=== PATIENT | female | born 1985 | race Caucasian/White ===

== ENCOUNTER 2021-07-17 13:12 | Emergency (ER) | payer BC, SELFPAY ==
--- NOTE | ~2021-07-17 | XR_ITS ---
EXAMINATION: XR CHEST CLINICAL INFORMATION: Flulike symptoms COMPARISON: None TECHNIQUE: Frontal view of the chest was obtained. FINDINGS: Normal appearance of the cardiomediastinal structures. No effusions or pneumothoraces. A normal pattern of pulmonary vasculature is noted. No focal pulmonary consolidation is identified. No skeletal abnormalities visualized. XR/XR chest 1V IMPRESSION: Normal chest. Lungs clear.
[2021-07-17 13:21] VITALS: BP 142/88; PULSE 118; O2SAT 95
[2021-07-17 14:44] VITALS: BP 130/76; PULSE 116; RESP 18; TEMP 36.4; O2SAT 95
[2021-07-17 17:06] VITALS: BP 141/85; PULSE 104; RESP 16; TEMP 36.4; O2SAT 95; BMI 33.6
--- NOTE | 2021-07-17 17:06 | ED_ITS ---
HPI - Abdominal Pain General Chief Complaint: Abdominal Pain Stated Complaint: FLU-LIKE SYMPTOMS,N/V Time Seen by Provider: 07/17/21 13:15 Source: patient Mode of arrival: EMS History of Present Illness HPI narrative: 36-year-old female who presents emergency department for evaluation of nausea, diarrhea and abdominal pain which began at midnight. Patient states that she has moderate to severe, constant, abdominal pain located around her umbilical area and her lower abdomen. She states that she has had too numerous to count episodes of diarrhea with no blood in the diarrhea. She states she has been feeling lightheaded and dizzy. She states that her legs were cramping and feeling weak. She denied rhinorrhea, sore throat, cough, chest pain. She states she was feeling some slight dyspnea on exertion. The patient has been vaccinated for COVID 19, she received her initial to [email or web address] and a booster shot May 2021. She has not traveled outside of the country recently. She has not been on antibiotics recently. Related Data Previous Rx's Medication Instructions Recorded ondansetron 4 mg disintegrating 4 mg PO Q6-8H PRN #14 tab 07/17/21 tablet Allergies Allergy/AdvReac Type Severity Reaction Status Date / Time No Known Allergies Allergy Verified 07/17/21 16:59 Review of Systems Review of Systems Yes all other systems are reviewed and are negative Physical Exam Vital Signs: Vital Signs: Last Vital Signs Temp 97.6 F 07/17/21 17:06 Pulse 104 H 07/17/21 17:06 Resp 16 07/17/21 17:06 BP 141/85 H 07/17/21 17:06 Pulse Ox 95 07/17/21 17:06 BMI result Body Mass Index 33.6 Const: General: cooperative and no acute distress Orientation /consciousness: oriented to person and oriented to place Limitations: no limitations HENMT: Head: Yes normal to inspection, Yes normocephalic and Yes atraumatic Ears: external ears normal General nose exam: Normal external nose present Face and sinus: Yes normal facial exam Mouth: Normal oral and palatal mucosa present Throat: Yes posterior oropharynx normal Eyes: General: appearance normal, both eyes and all related structures Pupils: Equal, round and reactive pupils present EOM: movement deficit (Left eye deviated laterally) Neck: Neck: Yes normal visual inspection, Yes no lymphadenopathy, Yes trachea midline and Yes supple Chest: Chest palpation & inspection: normal inspection of the chest and normal palpation of entire chest wall Resp: Effort & Inspection: normal respiratory effort and able to speak in complete sentences Auscultation: clear to auscultation bilaterally Cardio: Rate: regular rate Rhythm: regular rhythm Heart sounds: S1 normal heart sound present, S2 normal heart sound present and no murmurs GI: Inspection: Yes normal to inspection Palpation (GI): Soft to palpation, Tenderness to palpation present (GI) in the epigastrum (Mild), in the RLQ (Moderate), in the LUQ (Moderate), periumbilically (Moderate) and suprapubicly (Moderate) and no guarding Auscultation: normal bowel sounds : General: Yes no CVA tenderness Back/Spine/Pelvis: Back: no CVA tenderness Skin: General skin exam: no rashes or lesions noted Neuro: General: oriented to person and oriented to place Cranial nerves: Yes CN's II-XII intact bilaterally and Yes Equal, round and reactive pupils present Cognition (Neuro): normal cognition Motor exam (neuro): 5/5 motor strength present throughout Extrem: General: Yes normal to inspection Psych: Appearance: grossly normal Speech and movement: Normal speech and movement present Affect: normal affect Attitude: cooperative Thought process: Normal thought process present Thought content: Normal thought content present Course Course Course Narrative: 36-year-old female who presents emergency department for evaluation of abdominal pain, nausea and diarrhea. Her symptoms began at midnight. She has had too numerous to count episodes of diarrhea with no blood in the diarrhea. She complains of periumbilical and lower abdominal pain which waxes and wanes in intensity but is 8/10 at its worst. Vital signs revealed an elevated pulse of 116 otherwise were unremarkable. Abdominal exam revealed mild epigastric tenderness with moderate periumbilical right lower quadrant, supra pubic and left lower quadrant tenderness. Differential includes but is not limited to viral infection, COVID-19, appendicitis, diverticulitis, pancreatitis. Given her diarrhea aspect that this is more likely a viral illness. I did order a CBC, CMP, lipase, urinalysis, urine test. Patient will be treated with normal saline IV x1 L. Her pain will be treated with Toradol 15 mg IV and her nausea treated with Zofran 4 mg IV. I did order a SARs/influenza/RSV test as well. 1940: Laboratory evaluation: CBC was normal. Potassium was low 3.2, bicarb was low 16, glucose was elevated 150, AST is elevated at 32. Lactate was elevated 2.2. Chest x-ray was negative. COVID-19, influenza and RSV tests were negative. The patient states that her pain did improve, her nausea also improved, she was able to drink Gatorade without any difficulty. She had no diarrhea while she was here in the emergency department. Repeat abdominal exam revealed mild left lower and left upper quadrant tenderness. She states that her pain is 7/10. She was given morphine 4 mg IV. I suspect the patient has a viral syndrome causing her symptoms I did discuss this with her. I did tell her that her COVID-19 test was negative however between day 1 and for of COVID false negatives are possible and I told her that she is still sick after 5 days she should have a repeat COVID test. She was given a note not return to work for 5 days. She is given a prescription for Zofran 4 mg every 6-8 hours as needed for nausea and vomiting. MDM - Abdominal Pain Lab Data Result diagrams: 07/17/21 18:25 07/17/21 18:25 Labs: Lab Results 07/17/21 07/17/21 07/17/21 Range/Units 17:38 17:50 18:25 WBC 10.7 (4.8-10.8) X10*3/uL RBC 4.94 (4.20-5.50) X10*6/uL Hgb 14.0 (12.0-16.0) g/dl Hct 43.9 (37.0-47.0) % MCV 88.9 (80.0-98.0) fL MCH 28.3 (27.0-33.0) pg MCHC 31.9 (31.0-35.0) g/dl RDW 14.1 (11.0-16.0) % Plt Count 275 (160-400) X10*3/uL MPV 9.4 (9.4-12.3) fL Immature Gran % (Auto) 0.6 H (0.0-0.4) % Neut % (Auto) 90.0 H (45-73) % Lymph % (Auto) 3.4 L (20-40) % Sullivan % (Auto) 5.8 (2-11) % Eos % (Auto) 0.0 (0-4) % Baso % (Auto) 0.2 (0-2) % Lymph # (Auto) 0.4 L (1.2-4.9) X10*3/uL Sullivan # (Auto) 0.6 (0.1-1.2) X10*3/uL Eos # (Auto) 0.0 (0.0-0.4) X10*3/uL Baso # (Auto) 0.0 (0.0-0.2) X10*3/uL Abs Immat Gran (auto) 0.06 H (0.00-0.03) X10*3/uL Absolute Neuts (auto) 9.7 H (2.0-8.3) x10*3/uL Absolute Nucleated RBC 0.000 (0.0-0.012) X10*3/uL Nucleated RBC % (auto) 0.0 (0.0-0.2) /100WBC Sodium (135-145) mmol/L Potassium (3.3-5.1) mmol/L Chloride (96-108) mmol/L Carbon Dioxide (22-29) mmol/L Anion Gap (12-20) BUN (9-16) mg/dL Creatinine (0.5-1.4) mg/dL Estim Creat Clear Calc Estimated GFR Random Glucose (60-115) mg/dL Lactic Acid (0.5-2.0) mmol/L Calcium (8.4-10.2) mg/dL Total Bilirubin (0.0-1.0) mg/dL AST (5-31) U/L ALT (0-31) U/L Alkaline Phosphatase (39-117) U/L Total Protein (6.5-8.0) g/dL Albumin (3.5-5.0) g/dL Lipase (8-78) U/L Urine Color YELLOW Urine Appearance HAZY Urine pH 6.0 (5.0-8.0) Ur Specific [place] >= 1.030 H (1.005-1.025) Urine Protein 1+ H (NEG-TRACE) MG/DL Urine Glucose (UA) NEG (NEG) MG/DL Urine Ketones 15 (NEG) MG/DL Urine Blood 2+ H (NEG) Urine Nitrite NEG (NEG) Ur Leukocyte Esterase NEG (NEG) Urine RBC 5-9 H (0) /HPF Urine WBC 0-2 (0-4) /HPF Ur Squamous Epith Cells 2+ /LPF Urine Bacteria 1+ /LPF Urine Mucus 2+ /LPF Influenza Type A (PCR) NEGATIVE (Negative) Influenza Type B (PCR) NEGATIVE (Negative) RSV RNA Qual (PCR) NEGATIVE (Negative) SARS-CoV-2 RNA (RT-PCR) NEGATIVE (Negative) 07/17/21 07/17/21 Range/Units 18:25 18:25 WBC (4.8-10.8) X10*3/uL RBC (4.20-5.50) X10*6/uL Hgb (12.0-16.0) g/dl Hct (37.0-47.0) % MCV (80.0-98.0) fL MCH (27.0-33.0) pg MCHC (31.0-35.0) g/dl RDW (11.0-16.0) % Plt Count (160-400) X10*3/uL MPV (9.4-12.3) fL Immature Gran % (Auto) (0.0-0.4) % Neut % (Auto) (45-73) % Lymph % (Auto) (20-40) % Sullivan % (Auto) (2-11) % Eos % (Auto) (0-4) % Baso % (Auto) (0-2) % Lymph # (Auto) (1.2-4.9) X10*3/uL Sullivan # (Auto) (0.1-1.2) X10*3/uL Eos # (Auto) (0.0-0.4) X10*3/uL Baso # (Auto) (0.0-0.2) X10*3/uL Abs Immat Gran (auto) (0.00-0.03) X10*3/uL Absolute Neuts (auto) (2.0-8.3) x10*3/uL Absolute Nucleated RBC (0.0-0.012) X10*3/uL Nucleated RBC % (auto) (0.0-0.2) /100WBC Sodium 138 (135-145) mmol/L Potassium 3.2 L (3.3-5.1) mmol/L Chloride 110 H (96-108) mmol/L Carbon Dioxide 16 L (22-29) mmol/L Anion Gap 15 (12-20) BUN 15 (9-16) mg/dL Creatinine 0.79 (0.5-1.4) mg/dL Estim Creat Clear Calc 116.9 Estimated GFR > 60 Random Glucose 150 H (60-115) mg/dL Lactic Acid 2.2 H* (0.5-2.0) mmol/L Calcium 8.3 L (8.4-10.2) mg/dL Total Bilirubin 0.5 (0.0-1.0) mg/dL AST 23 (5-31) U/L ALT 32 H (0-31) U/L Alkaline Phosphatase 50 (39-117) U/L Total Protein 6.5 (6.5-8.0) g/dL Albumin 3.8 (3.5-5.0) g/dL Lipase 9 (8-78) U/L Urine Color Urine Appearance Urine pH (5.0-8.0) Ur Specific [place] (1.005-1.025) Urine Protein (NEG-TRACE) MG/DL Urine Glucose (UA) (NEG) MG/DL Urine Ketones (NEG) MG/DL Urine Blood (NEG) Urine Nitrite (NEG) Ur Leukocyte Esterase (NEG) Urine RBC (0) /HPF Urine WBC (0-4) /HPF Ur Squamous Epith Cells /LPF Urine Bacteria /LPF Urine Mucus /LPF Influenza Type A (PCR) (Negative) Influenza Type B (PCR) (Negative) RSV RNA Qual (PCR) (Negative) SARS-CoV-2 RNA (RT-PCR) (Negative) Discharge Plan Discharge Clinical Impression: Viral syndrome, Nausea Abdominal pain Qualifiers: Abdominal location: unspecified location Qualified Code(s): R10.9 - Unspecified abdominal pain Diarrhea Qualifiers: Diarrhea type: unspecified type Qualified Code(s): R19.7 - Diarrhea, unspecified Patient Disposition: Home, Self-Care Instructions: Acute Diarrhea (ED), Viral Syndrome (ED) Additional Instructions: Your blood work was consistent with dehydration from diarrhea. Your influenza and RSV virus tests were negative. Your COVID-19 test was negative. This is reassuring specially since your fully vaccinated. However, between Day 1 to Day 4 of a COVID infection, false negative tests are possible. If your still sick 5 days from now and you have symptoms that are concerning for a COVID pneumonia such as fever, chills, chest pain, shortness of breath, shortness of breath with exertion diffuse muscle pain then you should consider getting retested for COVID 19. Your symptoms are consistent with a viral infection. Take ibuprofen 200 mg pills, 3 pills every 6 hours as needed for pain. Take Tylenol (acetaminophen) 500 mg pills, 2 pills every 4 to 6 hours as needed for pain. Take Imodium as directed on the package. Take Zofran ODT 4 mg pills, 1 pill dissolved in your mouth every 8 hours as needed for nausea and vomiting. Follow-up with your doctor in 2 days. Please return to the emergency department if your symptoms get worse or if you develop any symptoms that are concerning to you. Prescriptions: New ondansetron 4 mg tablet,disintegrating 4 mg PO Q6-8H PRN (Reason: nausea and vomiting) Qty: 14 RF: 0 Stand Alone Forms: Work/School Release [facility] Past Medical History [facility] Narrative: Past medical history: Asthma. Past surgical history: None. Social history: She denies tobacco, alcohol and drug use. Medical History (Updated 07/17/21 @ 19:46 by Higinio Child MD) Asthma Surgical History (Updated 07/17/21 @ 17:09 by Adriana Chauhan) H/O knee surgery Social History Social History Advance Directives: No Advance Directives Information Provided: No Patient : No
[2021-07-17] MEDS: 0.9 % Sodium Chloride 1,000 ML 999 ML IV (17:21)
[2021-07-17] MEDS: ondansetron HCL 4 MG/2 ML VIAL IVPUSH (17:22)
[2021-07-17] MEDS: Ketorolac Tromethamine 30 MG/ML VIAL 15 MG IVPUSH (17:22)
[2021-07-17 17:57] LABS: Appearance Urine HAZY; Color Urine YELLOW; Glucose Urine UA NEG (NEG); Leukocyte Esterase Urine NEG (NEG); Nitrite Urine NEG (NEG); Specific Gravity - Urine >= 1.030 (1.005-1.025); UACC Culture Trigger NO; Urine Blood 2+ (NEG); Urine Ketones 15 MG/DL (NEG); Urine Protein 1+ MG/DL (NEG-TRACE)
[2021-07-17 18:08] LABS: Bacteria Urine 1+ /LPF; Mucus Urine 2+ /LPF; Squamous Epithelial Cell Urine 2+ /LPF; WBC Urine 0-2 /HPF (0-4)
[2021-07-17 18:26] LABS: Influenza A PCR NEGATIVE (Negative); Influenza B PCR NEGATIVE (Negative); Resp Syncy Virus RNA Qual PCR NEGATIVE (Negative); SARS COV2 PCR INHOUSE NEGATIVE (Negative)
[2021-07-17 18:30] LABS: MANUAL DIFF FLAG NO
[2021-07-17 18:31] LABS: Basophils Percent Auto 0.2 % (0-2); Hematocrit 43.9 % (37.0-47.0); Imm Gran Abs Auto 0.06 X10*3/uL (0.00-0.03); Imm Gran Pct Auto 0.6 % (0.0-0.4); Lymphocytes Absolute Auto 0.4 X10*3/uL (1.2-4.9); Lymphocytes Percent Auto 3.4 % (20-40); Mean Corpuscular HGB Conc 31.9 g/dl (31.0-35.0); Mean Corpuscular Hemoglobin 28.3 pg (27.0-33.0); Mean Corpuscular Volume 88.9 fL (80.0-98.0); Mean Platelet Volume 9.4 fL (9.4-12.3); Monocytes Absolute Auto 0.6 X10*3/uL (0.1-1.2); Monocytes Percent Auto 5.8 % (2-11); Neutrophils Absolute Auto 9.7 x10*3/uL (2.0-8.3); Platelet Count 275 X10*3/uL (160-400); Red Blood Count 4.94 X10*6/uL (4.20-5.50); Red Cell Distribution Width 14.1 % (11.0-16.0); White Blood Count 10.7 X10*3/uL (4.8-10.8)
[2021-07-17 18:50] LABS: Alanine Aminotransferase 32 U/L (0-31); Albumin Level 3.8 g/dL (3.5-5.0); Alkaline Phosphatase 50 U/L (39-117); Anion Gap 15 (12-20); Aspartate Amino Transferase 23 U/L (5-31); Bilirubin Total 0.5 mg/dL (0.0-1.0); Blood Urea Nitrogen 15 mg/dL (9-16); Calcium 8.3 mg/dL (8.4-10.2); Carbon Dioxide 16 mmol/L (22-29); Chloride 110 mmol/L (96-108); Creatinine Clr Calc Pharmacy 116.9; Estimated Glomerular Filt Rate > 60; Glucose Random 150 mg/dL (60-115); Lipase 9 U/L (8-78); Potassium 3.2 mmol/L (3.3-5.1); Sodium 138 mmol/L (135-145); Total Protein 6.5 g/dL (6.5-8.0)
[2021-07-17 19:11] LABS: Lactic Acid 2.2 mmol/L (0.5-2.0)
[2021-07-17 19:59] VITALS: BP 126/76; RESP 16
[2021-07-17] MEDS: Morphine Sulfate 4 MG/ML CARTRIDGE IVPUSH (20:01)
[2021-07-17 20:05] VITALS: BP 126/72; PULSE 95; RESP 18; O2SAT 96
[2021-07-17 20:30] LABS: Reflex Lactate? Lactic Acid Added
== END 2021-07-17 20:35 | disposition home or self-care (01) ==
PROVIDERS: Emergency Provider Emergency Medicine Emergency Medical Services; PCP Nurse Practitioner Family
DX: B34.9 Viral infection, unspecified (principal); R10.30 Lower abdominal pain, unspecified; R11.0 Nausea; R19.7 Diarrhea, unspecified; Z20.822 Contact with and (suspected) exposure to COVID-19
CPT/HCPCS: 0241U; 36415; 71045; 80053; 81001; 83605; 83690; 85025; 87040; 96361; 96374; 96375; 99284; J1885; J2270; J2405

== ENCOUNTER 2021-12-06 11:41 | Day surgery (SDC) | payer BC, SELFPAY ==
[2021-11-30 13:08] VITALS: BMI 34.0
--- NOTE | 2021-12-05 10:20 | HO.ANESPROP2 ---
Documented by User: Lluvia Garcia NP 12/05/21 10:21 HPI - Anesthesia Eval Consult details Narrative: 36yo F for Eye Muscle Recession/Resection,BILATERAL lateral rectus recession,LEFT inferior rectus recession PCP cleared [facility] Past Medical History Medical History (Updated 11/30/21 @ 13:08 by Heydi Clinton RN) Asthma Bipolar disorder COVID-19 vaccine series completed Depression GERD (gastroesophageal reflux disease) Surgical History Surgical History (Updated 11/30/21 @ 13:07 by Heydi Clinton RN) H/O knee surgery Social History Social History Are you a primary gericare aide to a significant other at home: No Do you presently have visiting nurse or other home services: No Patient Tobacco Use Status: Never used Tobacco Use of substances other than those prescribed or required for medical reasons: No Have you been hit, kicked, punched, or otherwise hurt by someone within the past year? If so, by whom?: No Are you DNR?: No Advance Directives: No (states is her spouse but not on file @ [facility]) Advance Directives Information Provided: Yes (as above noted) Advance Directives on File: No Recently lost weight without trying: No Eating poorly because of decreased appetite: No Nutrition Risks: No Nutritional Risk Patient : No FDLMP: 11/21/21 : No Poor oral hygiene: No Meds Allergies Allergy/AdvReac Type Severity Reaction Status Date / Time No Known Allergies Allergy Verified 07/17/21 16:59 Home Medications Medication Instructions Recorded Confirmed Last Taken Type albuterol sulfate 90 mcg/actuation 2 puff INHALATION Q4-6H PRN 11/30/21 11/30/21 Unknown History aerosol inhaler (Ventolin HFA) esomeprazole magnesium 20 mg 20 mg PO BEDTIME 11/30/21 11/30/21 Unknown History capsule,delayed release (Nexium) lamotrigine 50 mg tablet,extended 50 mg PO BEDTIME 11/30/21 11/30/21 Unknown History release 24 hr sertraline 100 mg tablet 1 tab PO BEDTIME 11/30/21 11/30/21 Unknown History zolpidem 5 mg tablet 1 tab PO BEDTIME PRN 11/30/21 11/30/21 Unknown History Exam Exam Date and Time: December 05, 2021 1020 Height,Weight and Vital Signs: Height 5 ft 7 in Weight 98.43 kg Assessment and Plan Assessment Anesthesia Assessment: Chart Reviewed Documented by User: Leticia Glass MD 12/06/21 12:12 [facility] Past Medical History Medical History (Updated 11/30/21 @ 13:08 by Heydi Clinton RN) Asthma Bipolar disorder COVID-19 vaccine series completed Depression GERD (gastroesophageal reflux disease) Family History Family history of problems with anesthesia: No Surgical History Surgical History (Updated 11/30/21 @ 13:07 by Heydi Clinton RN) H/O knee surgery History of Problems with Anesthesia: No Social History Social History Are you a primary gericare aide to a significant other at home: No Do you presently have visiting nurse or other home services: No Patient Tobacco Use Status: Never used Tobacco Use of substances other than those prescribed or required for medical reasons: No Have you been hit, kicked, punched, or otherwise hurt by someone within the past year? If so, by whom?: No Are you DNR?: No Advance Directives: No (states is her spouse but not on file @ [facility]) Advance Directives Information Provided: Yes (as above noted) Advance Directives on File: No Recently lost weight without trying: No Eating poorly because of decreased appetite: No Nutrition Risks: No Nutritional Risk Patient : No FDLMP: 11/21/21 : No Poor oral hygiene: No Meds Allergies Allergy/AdvReac Type Severity Reaction Status Date / Time No Known Allergies Allergy Verified 07/17/21 16:59 Home Medications Medication Instructions Recorded Confirmed Last Taken Type albuterol sulfate 90 mcg/actuation 2 puff INHALATION Q4-6H PRN 11/30/21 11/30/21 Unknown History aerosol inhaler (Ventolin HFA) esomeprazole magnesium 20 mg 20 mg PO BEDTIME 11/30/21 11/30/21 Unknown History capsule,delayed release (Nexium) lamotrigine 50 mg tablet,extended 50 mg PO BEDTIME 11/30/21 11/30/21 Unknown History release 24 hr sertraline 100 mg tablet 1 tab PO BEDTIME 11/30/21 11/30/21 Unknown History zolpidem 5 mg tablet 1 tab PO BEDTIME PRN 11/30/21 11/30/21 Unknown History Exam Airway Mallampati Class: II TM Dist: >3cm Neck ROM: Full Heart: rrr Lungs: cta Assessment and Plan Assessment Anesthesia Assessment: Anesthesia Plan Discussed and Chart Reviewed Final Anesthetic Review Family History of Problems with Anesthesia: No History of Problems with Anesthesia: No NPO: Yes ASA Class: II Final Preanesthetic Review: No Changes in Pt Med Stat, Meds/Allgs Chart Reviewed and Consent Obtained/Reviewed Patient Risk: Intermediate Procedure Risk: Intermediate Anesthetic Plan Anesthetic Plan: GA Disposition: Standard PACU
[2021-12-06] VITALS (8 sets, daily range): BP systolic 104–141; BP diastolic 60–78; PULSE 75–92; RESP 14–19; TEMP 36.3–36.6; O2SAT 92–96
[2021-12-06 12:04] LABS: Urine Pregnancy NEGATIVE (NEGATIVE)
[2021-12-06 12:05] LABS: UPreg QC Valid YES
[2021-12-06] MEDS: Lactated Ringers 1,000 ML 100 ML IVCONT (12:35)
--- NOTE | 2021-12-06 16:08 | HO.OPHTHAL ---
Ophthalmology Operative Note Date of Service: 12/06/21 Narrative: Diagnoses 1. Exotropia 2. Right hypertropia. Procedures 1. Bilateral lateral rectus recessions of 6 mm 2. Recession of left inferior rectus muscle [address] Osorio anesthesia general complications none. The patient was brought to the operating room placed under general anesthesia. The patient's eyes were prepped and draped in the usual sterile ophthalmic fashion. A lid speculum was placed in the right eye and incisions made at bare sclera in the inferotemporal fornix. The lateral rectus muscle was hooked and secured with a double-armed Vicryl suture. The muscle was then disinserted from the globe and reattached to position 6 mm behind the original insertion with suture. Conjunctiva was closed with interrupted Vicryl sutures. The lid speck was then transferred to the left eye and identical procedure was performed on the lateral rectus muscle. The inferior rectus muscle was then hooked and secured with a double-armed Vicryl suture. It was disinserted from the globe and reattached to a position 3 mm behind its original insertion. Conjunctiva was closed with interrupted Vicryl sutures. The patient was then awoken from general anesthesia and discharged to postoperative recovery in good condition.
== END 2021-12-06 17:17 | disposition home or self-care (01) ==
PROVIDERS: Nurse Practitioner; PCP Nurse Practitioner Family; Visit Provider Ophthalmology
PROC: (CPT 67311; principal; 2021-12-06 13:10)
DX: H50.112 Monocular exotropia, left eye (principal); H50.21 Vertical strabismus, right eye; H53.2 Diplopia; J45.20 Mild intermittent asthma, uncomplicated; K21.9 Gastro-esophageal reflux disease without esophagitis; F41.8 Other specified anxiety disorders; Z79.899 Other long term (current) drug therapy
CPT/HCPCS: 67311; 67314; 81025; J0330; J1100; J2250; J2405; J3010